=== PATIENT | female | born 1965 | race African-American/Black ===

== ENCOUNTER 2016-06-10 20:24 | Emergency (ER) | payer OTHER ==
[2016-06-10 20:32] VITALS: BP 124/79; PULSE 76; TEMP 98.2; BMI 32.8
--- NOTE | 2016-06-10 20:48 | PDOC ---
History of Present Illness <Chance Duron - Last Filed: 06/11/16 00:37> - General History Source: Patient Exam Limitations: No Limitations - History of Present Illness Initial Comments: 06/10/16 21:18 The patient is a 51 year old female, with significant past medical history of a cholecystectomy and hypothyroidism, who presents today complaining of right sided abdominal pain. The patient states that the abdominal pain is intermittent and occurs when coughing and bending over. She describes the pain as a fist punching through her abdomen. The pain radiates to both her back and groin. 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 The patients last meal was 2 hours ago. Denies fever, chills, nausea, vomiting. Denies diarrhea, constipation. Denies hematuria, urinary problems. Denies chest pain, SOB. The patient went through menopause approximately 6 years ago. Allergies: none reported Surgical Hx: Cholecystectomy <Lisa Bone - Last Filed: 06/11/16 00:43> - General Chief Complaint: Pain Stated Complaint: STOMACH PAIN Time Seen by Provider: 06/10/16 20:48 Past History - Past Medical History Thyroid Disease: Yes - Surgical History Abdominal Surgery: Yes Cholecystectomy: Yes (2001) - Immunization History Td Vaccination: Yes Immunization Up to Date: Yes - Psycho/Social/Smoking Cessation Hx Anxiety: No Suicidal Ideation: No Smoking Status: Yes Smoking History: Current every day smoker Have you smoked in the past 12 months: Yes Number of Cigarettes Smoked Daily: 10 Information on smoking cessation initiated: No 'Breaking Loose' booklet given: 05/22/13 Hx Alcohol Use: No Drug/Substance Use Hx: No Substance Use Type: None <Chance Duron - Last Filed: 06/11/16 00:37> <Lisa Bone - Last Filed: 06/11/16 00:43> - Past Medical History Allergies/Adverse Reactions: Allergies Allergy/AdvReac Type Severity Reaction Status Date / Time No Known Allergies Allergy Verified 06/10/16 20:26 Home Medications: Ambulatory Orders Thyroid,Pork [[place] Thyroid] 75 mg PO DAILY 02/19/12 Review of Systems - Review of Systems Able to Perform ROS?: Yes Comments:: 06/10/16 21:19 CONSTITUTIONAL: No fever, no chills, no fatigue EYES: No visual changes ENT: No ear pain, no sore throat CARDIOVASCULAR: No chest pain, no palpitations RESPIRATORY: No cough, no SOB GI:+abdominal pain. No nausea, no vomiting, no constipation, no diarrhea GENITOURINARY: No dysuria, no frequency, no hematuria MUSKULOSKELETAL: No backpain, no joint pain, no myalgias SKIN: No rash NEURO: No headache <Lisa Bone - Last Filed: 06/11/16 00:43> *Physical Exam - Vital Signs Last Vital Signs Temp Pulse Resp BP Pulse Ox 98.2 F 76 18 124/79 99 06/10/16 20:27 06/10/16 20:27 06/10/16 20:27 06/10/16 20:27 06/10/16 20:27 <Chance Duron - Last Filed: 06/11/16 00:37> - Vital Signs Last Vital Signs Temp Pulse Resp BP Pulse Ox 98.2 F 76 18 124/79 99 06/10/16 20:27 06/10/16 20:27 06/10/16 20:27 06/10/16 20:27 06/10/16 20:27 - Physical Exam Comments: 06/10/16 21:19 CONSTITUTIONAL: Awake, Alert, Obese HEAD: Normocephalic; atraumatic EYES: PERRL; EOM intact. No scleral icterus. Conjunctiva pink. ENMT: External appears normal; normal oropharynx. Moist mucous membranes. NECK: Supple; non-tender; no cervical lymphadenopathy CARD: Normal S1, S2; no murmurs, rubs, or gallops RESP: Normal chest excursion with respiration; breath sounds clear and equal bilaterally; no wheezes, rhonchi, or rales ABD: +Right periumbilical tenderness without guarding or rebound. Soft, non- distended; no palpable organomegaly, no palpable hernias. BACK: No CVA tenderness. EXT: Normal ROM in all four extremities; non-tender to palpation; distal pulses intact SKIN: Warm, dry, no rash NEURO: No focal neurological deficiencies. <Lisa Bone - Last Filed: 06/11/16 00:43> ED Treatment Course - LABORATORY CBC & Chemistry Diagram: 06/10/16 21:27 06/10/16 21:27 <Chance Duron - Last Filed: 06/11/16 00:37> - LABORATORY CBC & Chemistry Diagram: 06/10/16 21:27 06/10/16 21:27 - RADIOLOGY Radiograph Interpretation: 06/11/16 00:43 Exam: Contrast-enhanced CT abdomen and pelvis Images: 430 Clinical indication: Right lower quadrant pain. Rule out appendicitis. Findings: Subsegmental dependent atelectatic changes are noted in the lung bases. An irregularly marginated cystic hypodensities seen on the capsular surface of the right lobe of liver. The patient is status post cholecystectomy. A 14 mm peripherally calcified density seen in the subhepatic space on the right (image 51 may represent a dropped stone. The spleen and pancreas have a normal appearance. The adrenal glands are unremarkable. The kidneys have a normal appearance and enhance symmetrically. There is no evidence of urinary tract obstruction. The gastrointestinal tract does not appear obstructed. No thickened or dilated bowel is seen. A periampullary polypoid filling defect is noted in the duodenum (axial image 60 and coronal reformatted image 45) no thickened or dilated bowel is seen. The appendix has a normal appearance. There is no mesenteric infiltration. The uterus is anteverted. No adnexal masses are seen. The urinary bladder is unremarkable. No abdominal or pelvic adenopathy is seen. No lytic or blastic destructive osseous lesions are seen. Impression: Normal appendix. No inflammatory process identified in the abdomen or pelvis. No abdominal mass, adenopathy or collection seen. Periampullary polypoid lesion. Consider further evaluation. <Lisa Bone - Last Filed: 06/11/16 00:43> Medical Decision Making - Medical Decision Making 06/11/16 00:39 Patient is well-appearing 51-year-old female who presents with atraumatic right- sided abdominal pain without associated nausea/vomiting/diarrhea/dysuria/ hematuria/frequency/urgency. In the ER, patient is awake and alert, resting comfortably, with mild right periumbilical discomfort on deep palpation exacerbated by Valsalva. CBC/CMP within normal limit. Urinalysis reveals 11 WBCs per high-power field (will await urine culture) given the patient experiences no urinary symptoms. CT of abdomen and pelvis reveals several small right lobe cysts as well as a proximal duodenal polyp. No evidence of acute intra-abdominal pathology is noted. Patient tolerates by mouth. At this time, I do not believe patient has any acute intra-abdominal issues and is safe for outpatient follow-up with GI. Will discharge. <Chance Duron - Last Filed: 06/11/16 00:37> *DC/Admit/Observation/Transfer - Attestations Physician Attestion: 06/11/16 00:38 The documentation was prepared by the scribe under my direct supervision. I have reviewed the documentation which correctly represents the findings, medical decision-making and critical action taken by me. <Chance Duron - Last Filed: 06/11/16 00:37> - Attestations Scribe Attestion: 06/10/16 21:20 Documentation prepared by NAYAN Suarez, acting as medical charge entry specialist for Chance Duron MD. <Lisa Bone - Last Filed: 06/11/16 00:43> Diagnosis at time of Disposition: Abdominal pain Qualifiers: Abdominal location: right upper quadrant Qualified Code(s): R10.11 - Right upper quadrant pain - Discharge Dispostion Disposition: HOME Condition at time of disposition: Stable - Referrals Referrals: Paul Al MD [Staff Physician] - - Patient Instructions Printed Discharge Instructions: DI for Abdominal Pain-Adult
[2016-06-10] MEDS ORDERED: SODIUM CHLORIDE 1,000 ML IV STA (21:15)
[2016-06-10 21:40] LABS: BASOPHIL 0.5 % (0-2.0); EOSINOPHIL 1.6 % (0-4.5); MCH 31.7 pg (25.7-33.7); MCHC 34.4 g/dl (32.0-36.0); MEAN CELL VOLUME 92.2 fl (80-96); NEUTROPHILS 59.1 % (42.8-82.8); PLATELET COUNT 264 K/MM3 (134-434); RDW 14.4 % (11.6-15.6); WHITE BLOOD COUNT 8.1 K/mm3 (4.0-10.0)
[2016-06-10 21:43] LABS: URINE APPEARANCE SLCLOUDY; URINE BILIRUBIN NEGATIVE (NEGATIVE); URINE COLOR YELLOW; URINE GLUCOSE (UA) NEGATIVE (NEGATIVE); URINE KETONE TRACE (NEGATIVE); URINE NITRITE NEGATIVE (NEGATIVE); URINE UROBILINOGEN 2.0 E.U/dl E.U./dl (0.2-1.0)
[2016-06-10 21:45] LABS: URINE BLOOD 1+ (NEGATIVE); URINE LEUK ESTERASE TRACE (NEGATIVE); URINE PROTEIN 1+ (NEGATIVE)
[2016-06-10 21:59] LABS: INR 1.04 (0.82-1.09); PROTHROMBIN TIME (PATIENT) 11.4 SEC (9.98-11.88)
[2016-06-10 22:15] LABS: URINE HYALINE CAST 3 /lpf; URINE MUCUS MODERATE; URINE RBC 7 /hpf (0-3); URINE WBC 11 /hpf (3-5)
[2016-06-10 22:24] LABS: ALBUMIN 4.5 g/dl (3.4-5.0); ANION GAP 9 (8-16); BILIRUBIN,TOTAL 0.4 mg/dL (0.2-1.0); CALCIUM 9.4 mg/dL (8.5-10.1); CO2 28 mmol/L (21-32); CREATININE 0.9 mg/dL (0.55-1.02); GLUCOSE,RANDOM 100 mg/dL (74-106); SGOT/AST 24 U/L (15-37); SGPT/ALT 41 U/L (12-78)
[2016-06-10 22:25] LABS: ALK PHOS 99 U/L (45-117)
== END 2016-06-11 00:49 | disposition home or self-care (01) ==
LOC: JER 20:24
PROC: 3E0337Z Introduction of Electrolytic and Water Balance Substance into Peripheral Vein, Percutaneous Approach (ICD-10-PCS; principal; 2016-06-10)
DX: R10.31 Right lower quadrant pain (principal); E03.9 Hypothyroidism, unspecified
CPT/HCPCS: 36415; 74177-TC; 80053; 81003; 81015; 83690; 84703; 85025; 85610; 87086; 99283-25; Q9967

== ENCOUNTER 2016-10-11 10:28 | Emergency (ER) | payer SELFPAY ==
[2016-10-11 10:59] VITALS: BP 122/78; PULSE 80; TEMP 98.4; BMI 29.0
--- NOTE | 2016-10-11 12:57 | PDOC ---
History of Present Illness - General Chief Complaint: Respiratory Stated Complaint: SINUS INFECTION Time Seen by Provider: 10/11/16 12:42 History Source: Patient Exam Limitations: No Limitations - History of Present Illness Initial Comments: 10/11/16 12:52 Patient is here with complaints of cough and sinus congestion and mild pleuritic chest pain. Denies fever, denies any purulent phlegm production, 10/11/16 12:57 Timing/Duration: reports: other, getting worse Severity: reports: mild, moderate Past History - Travel Traveled outside of the country in the last 30 days: No Close contact w/someone who was outside of country & ill: No - Past Medical History Allergies/Adverse Reactions: Allergies Allergy/AdvReac Type Severity Reaction Status Date / Time No Known Allergies Allergy Verified 10/11/16 10:55 Home Medications: Ambulatory Orders Thyroid,Pork [[place] Thyroid] 75 mg PO DAILY 02/19/12 Cetirizine HCl/Pseudoephedrine [Allergy+Congestion Relf-D Tab] 1 each PO DAILY # 30 tab 10/11/16 Prednisone [Deltasone -] 20 mg PO BID #10 tablet 10/11/16 Thyroid Disease: Yes - Surgical History Abdominal Surgery: Yes Cholecystectomy: Yes (2001) - Immunization History Td Vaccination: Yes Immunization Up to Date: Yes - Psycho/Social/Smoking Cessation Hx Anxiety: No Suicidal Ideation: No Smoking Status: Yes Smoking History: Never smoked Have you smoked in the past 12 months: Yes Number of Cigarettes Smoked Daily: 10 Information on smoking cessation initiated: No 'Breaking Loose' booklet given: 05/22/13 Hx Alcohol Use: No Drug/Substance Use Hx: No Substance Use Type: None Respiratory Specific PMHX - Complaint Specific PMHX Bronchitis: No Pneumonia: No Review of Systems - Review of Systems Able to Perform ROS?: Yes Is the patient limited Citizen [place] proficient: Yes Constitutional: Yes: Symptoms Reported, See HPI, Malaise. No: Fever HEENTM: Yes: Symptoms Reported, See HPI, Nose Pain, Nose Congestion Respiratory: Yes: Symptoms reported, See HPI, Cough (moist non productivev ). No: Wheezing Cardiac (ROS): No: Symptoms Reported Musculoskeletal: Yes: Symptoms Reported All Other Systems: Reviewed and Negative *Physical Exam - Vital Signs Last Vital Signs Temp Pulse Resp BP Pulse Ox 98.4 F 80 18 122/78 98 10/11/16 10:55 10/11/16 10:55 10/11/16 10:55 10/11/16 10:55 10/11/16 10:55 - Physical Exam General Appearance: Yes: Nourished, Appropriately Dressed, Apparent Distress, Mild Distress HEENT: positive: HILARIA, Normal ENT Inspection, TMs Normal (congested but landmarks easily visualized), Nasal Congestion, Rhinorrhea (clear drainage). negative: Tonsillar Exudate, Tonsillar Erythema (redness, swelling or exudate noted) Neck: positive: Supple. negative: Lymphadenopathy (R), Lymphadenopathy (L) Respiratory/Chest: positive: Lungs Clear, Normal Breath Sounds. negative: Crackles, Wheezing Extremity: positive: Normal Capillary Refill, Normal Inspection, Normal Range of Motion, Tender, Pelvis Stable Integumentary: positive: Normal Color, Dry, Warm Neurologic: positive: ham passer II-XII NML intact, Fully Oriented, Alert, Normal Mood/ Affect, Normal Response, Motor Strength 5/5 Progress Note - Progress Note Progress Note: ALLERGIC rhinitis, will treat with Zyrtec D, short course of prednisone, and have follow-up with PMD *DC/Admit/Observation/Transfer Diagnosis at time of Disposition: Allergic rhinitis Qualifiers: Allergic rhinitis trigger: other Allergic rhinitis seasonality: unspecified seasonality Qualified Code(s): J30.89 - Other allergic rhinitis - Discharge Dispostion Disposition: HOME Condition at time of disposition: Stable Admit: No - Prescriptions Prescriptions: Cetirizine HCl/Pseudoephedrine [Allergy+Congestion Relf-D Tab] 1 each PO DAILY # 30 tab Prednisone [Deltasone -] 20 mg PO BID #10 tablet - Patient Instructions Printed Discharge Instructions: DI for Allergic Rhinitis Additional Instructions: Rest, drink lots of fluids: Teas, water, soups Saltwater gargles. Consider humidifier in room at night Steamy showers/seem to face break up mucus Avoid contact with allergens, exposure to pollens, close windows on a windy day Lots of handwashing and good hygiene Continue [id number] medications for symptomatic relief- may use allergic eyedrops for itching I Continue antihistamines daily until pollen season is over; Zyrtec, Claritin, Dian during the daytime and Benadryl at nighttime as will make sleepy Tylenol or Motrin for fever and pain Continue prednisone 40 mg daily for the next 5 days Followup with private physician in one to 2 days as needed Consider following up with an 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
== END 2016-10-11 13:15 | disposition home or self-care (01) ==
LOC: JERFT 10:28
DX: J30.89 Other allergic rhinitis (principal)
CPT/HCPCS: 99281-25

== ENCOUNTER 2017-04-13 08:45 | Emergency (ER) | payer OTHER ==
[2017-04-13 08:50] VITALS: BP 124/78; PULSE 86; TEMP 99.2; BMI 30.9
--- NOTE | 2017-04-13 09:24 | PDOC ---
History of Present Illness - General Chief Complaint: Cold Symptoms Stated Complaint: COLD SYMPTOMS Time Seen by Provider: 04/13/17 09:09 History Source: Patient Exam Limitations: No Limitations - History of Present Illness Initial Comments: 04/13/17 13:18 My chief complaint: Nasal congestion, sore throat, last few days, dry cough, rt. earache today History of present illness: Patient is a 52-year-old female with no significant medical history here today complaining of nasal congestion, sore throat for the last few days and a dry cough that started today. Patient denies any difficulty swallowing or breathing. Patient denies any fever, nausea vomiting or diarrhea. Pt. has rt. ear pain today and rt. sided headache. 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 Patient has had no recent travel. Patient did not have influenza vaccine. Pt. has yellowish discharge b/l eye for 2 days 04/13/17 13:21 04/13/17 13:24 Timing/Duration: getting worse Severity: mild Associated Symptoms: reports: cough, headaches (intermittent n), other (sore throat, discharge from b/l eyes) Past History - Past Medical History Allergies/Adverse Reactions: Allergies Allergy/AdvReac Type Severity Reaction Status Date / Time No Known Allergies Allergy Verified 04/13/17 08:50 Home Medications: Ambulatory Orders Thyroid,Pork [[place] Thyroid] 75 mg PO DAILY 02/19/12 Amoxicillin - [Amoxicillin 875mg Tablet -] 875 mg PO BID #20 tablet 04/13/17 Dextromethorphan Polistirex [Delsym] 60 mg PO Q12H PRN #1 nelson.er.[id number] 04/13/17 Tobramycin 0.3% Ophth Soln [Tobrex Ophthalmic Solution -] 2 drop OU Q6HPO #1 drops 04/13/17 COPD: No Thyroid Disease: Yes - Surgical History Abdominal Surgery: Yes Cholecystectomy: Yes (2001) - Immunization History Td Vaccination: Yes Immunization Up to Date: Yes - Suicide/Smoking/Psychosocial Hx Smoking Status: Yes Smoking History: Never smoked Have you smoked in the past 12 months: Yes Number of Cigarettes Smoked Daily: 10 'Breaking Loose' booklet given: 05/22/13 Hx Alcohol Use: No Drug/Substance Use Hx: No Substance Use Type: None Review of Systems - Review of Systems Able to Perform ROS?: Yes Constitutional: No: Symptoms Reported HEENTM: Yes: Ear Pain (rt. ), Nose Congestion, Throat Pain, Other (b/l eyes yellowish discharge ). No: Eye Pain, Blurred Vision, Tearing Respiratory: No: Symptoms reported Cardiac (ROS): No: Symptoms Reported ABD/GI: No: Symptoms Reported : No: Symptoms Reported Musculoskeletal: No: Symptoms Reported Integumentary: No: Symptoms Reported Neurological: No: Symptoms reported *Physical Exam - Vital Signs Last Vital Signs Temp Pulse Resp BP Pulse Ox 99.2 F 86 20 124/78 98 04/13/17 08:46 04/13/17 08:46 04/13/17 08:46 04/13/17 08:46 04/13/17 08:46 - Physical Exam General Appearance: Yes: Appropriately Dressed HEENT: positive: TMs Normal (left ), Pharyngeal Erythema, TM Bulging (slightly ) , TM Erythema (rt slightly), Other (b/l conjunctiva erythema ). negative: Tonsillar Erythema Neck: positive: Lymphadenopathy (R). negative: Lymphadenopathy (L) Respiratory/Chest: positive: Lungs Clear, Normal Breath Sounds. negative: Chest Tender, Respiratory Distress Cardiovascular: positive: Regular Rhythm, Regular Rate, S1, S2 Integumentary: positive: Normal Color Neurologic: positive: Alert, Normal Response Medical Decision Making - Medical Decision Making 04/13/17 13:21 Patient is a 52-year-old female with no significant medical history here today complaining of nasal congestion, sore throat for the last few days and a dry cough that started today. Patient denies any difficulty swallowing or breathing. Patient denies any fever, nausea vomiting or diarrhea. 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 Patient has had no recent travel. Patient did not have influenza vaccine. Pt. has had yellowish discharge b/l eyes for 2 days 04/13/17 13:22 Rt. otitis media pharngitis cough conjunctivitis PLAN: amoxicillin 875mg bid for 10 days tobramycin 0.3% 2 drops qid for 5 days 04/13/17 13:23 *DC/Admit/Observation/Transfer Diagnosis at time of Disposition: Cough in adult Otitis media Qualifiers: Otitis media type: unspecified Chronicity: acute Qualified Code(s): H66.90 - Otitis media, unspecified, unspecified ear Conjunctivitis Qualifiers: Conjunctivitis type: unspecified Laterality: unspecified laterality Qualified Code(s): H10.9 - Unspecified conjunctivitis - Discharge Dispostion Disposition: HOME Condition at time of disposition: Stable - Prescriptions Prescriptions: Amoxicillin - [Amoxicillin 875mg Tablet -] 875 mg PO BID #20 tablet Dextromethorphan Polistirex [Delsym] 60 mg PO Q12H PRN #1 nelson.er.12h PRN Reason: Cough Tobramycin 0.3% Ophth Soln [Tobrex Ophthalmic Solution -] 2 drop OU Q6HPO #1 drops - Referrals - Patient Instructions Additional Instructions: Drink a lot a fluids and rest Follow up with your primary care provider within the next few days Return to emergency room if symptoms worsen any difficulty breathing or swallowing or any new symptoms develop Patient voiced understanding of discharge instructions and all questions were answered Thank you for choosing [facility] emergency room for your medical needs today - Post Discharge Activity
== END 2017-04-13 09:42 | disposition home or self-care (01) ==
LOC: JERFT 08:45
DX: H66.91 Otitis media, unspecified, right ear (principal); H10.33 Unspecified acute conjunctivitis, bilateral
CPT/HCPCS: 99281-25

== ENCOUNTER 2017-04-25 10:45 | Emergency (ER) | payer OTHER ==
[2017-04-25 11:01] VITALS: BP 131/79; PULSE 68; TEMP 98.7; BMI 30.9
--- NOTE | 2017-04-25 12:36 | PDOC ---
History of Present Illness - General Chief Complaint: Tremors Stated Complaint: RT/LT HAND NUMBNESS Time Seen by Provider: 04/25/17 12:07 History Source: Patient Exam Limitations: No Limitations - History of Present Illness Initial Comments: 04/25/17 12:31 Patient is a [52-year-old female with history of hypothyroidism presents with intermittent numbness for several months to bilateral fingertips none upon arrival states she woke up with it this a.m. which has since resolved. Patient denies any chest pain or shortness of breath. ] Past Medical History: [Denies]. Allergies: No known allergies Medications: [Synthroid] Family History: Non-contributory Social History: Denies smoking, alcohol use, or IVDU Review of Systems GENERAL/CONSTITUTIONAL: [No fever or chills. No weakness. No weight change.] HEAD, EYES, EARS, NOSE AND THROAT: [No change in vision. No ear pain or discharge. No sore throat. ] CARDIOVASCULAR: [No chest pain or shortness of breath.] RESPIRATORY: [No cough, wheezing, or hemoptysis.] GASTROINTESTINAL: [No nausea, vomiting, diarrhea or constipation. No rectal bleeding.] GENITOURINARY: [No dysuria, frequency, or change in urination.] MUSCULOSKELETAL: [No joint or muscle swelling or pain. No neck or back pain. Tingling to bilaterl finger tips after waking up in the AM.] SKIN : [No rash or easy bruising.] NEUROLOGIC: [No headache, vertigo, loss of consciousness, or loss of sensation. Tingling to bilateral finger tips in the AM. ] PSYCHIATRIC: [No depression or anxiety.] ENDOCRINE: [No increased thirst. No abnormal weight change.] HEMATOLOGIC/LYMPHATIC: [No anemia, easy bleeding, or history of blood clots.] ALLERGIC/IMMUNOLOGIC: [No hives or skin allergy. No latex allergy.] Physical Exam: GENERAL: [The patient is awake, alert, and fully oriented, in no acute distress. ] HEAD: [Normal with no signs of trauma.] EYES: [Pupils equal, round and reactive to light, extraocular movements intact, sclera anicteric, conjunctiva clear.] ENT: [Ears normal, nares patent, oropharynx clear without exudates. Moist mucous membranes. No uvula deviation] NECK: [Normal range of motion, supple without lymphadenopathy, JVD, or masses.] LUNGS: [Breath sounds equal, clear to auscultation bilaterally. No wheezes, and no crackles.] HEART: [Regular rate and rhythm, normal S1 and S2 without murmur, rub or gallop. ] ABDOMEN: [Soft, nontender, normoactive bowel sounds. No guarding, no rebound. No masses. No bruising or abrasions] MUSCULOSKELETAL: [Normal range of motion, no edema. No clubbing or cyanosis. No cords, erythema, or tenderness. No CVA Tenderness with fist.] NEUROLOGICAL: [Cranial nerves II through XII grossly intact. Normal speech, normal gait.] SKIN: [Warm, Dry, normal turgor, no rashes or lesions noted.] Past History - Past Medical History Allergies/Adverse Reactions: Allergies Allergy/AdvReac Type Severity Reaction Status Date / Time No Known Allergies Allergy Verified 04/25/17 10:59 Home Medications: Ambulatory Orders Thyroid,Pork [[place] Thyroid] 75 mg PO DAILY 02/19/12 COPD: No Thyroid Disease: Yes - Surgical History Abdominal Surgery: Yes Cholecystectomy: Yes (2001) - Immunization History Td Vaccination: Yes Immunization Up to Date: Yes - Suicide/Smoking/Psychosocial Hx Smoking Status: Yes Smoking History: Current every day smoker Have you smoked in the past 12 months: Yes Number of Cigarettes Smoked Daily: 7 Information on smoking cessation initiated: No 'Breaking Loose' booklet given: 05/22/13 Hx Alcohol Use: No Drug/Substance Use Hx: No Substance Use Type: None *Physical Exam - Vital Signs Last Vital Signs Temp Pulse Resp BP Pulse Ox 98.7 F 68 19 131/79 99 04/25/17 10:59 04/25/17 10:59 04/25/17 10:59 04/25/17 10:59 04/25/17 10:59 Medical Decision Making - Medical Decision Making 04/25/17 12:34 A/P: Patient here for intermittent tingling to bilateral fingertips for several months hands alternate with symptoms, wakes up with tingling in the a.m. Patient denies any injury no difficulty breathing no chest pain or shortness of breath. Patient denies any symptoms upon arrival physical examination is unremarkable neurologically intact. Patient will need to follow-up with neurology since symptoms are chronic with no acute symptoms upon arrival. I discussed the physical exam findings, ancillary test results and final diagnoses with the patient. I answered all of the patient's questions. The patient was satisfied with the care received and felt comfortable with the discharge plan and treatment plan. The patient will call to arrange follow-up and will return to the Emergency Department with any new, persistent or worsening symptoms. *DC/Admit/Observation/Transfer Diagnosis at time of Disposition: Tingling in extremities - Discharge Dispostion Disposition: HOME Condition at time of disposition: Good Admit: No - Referrals Referrals: Surya Collado MD [Staff Physician] - Ebenezer Cat MD [Staff Physician] - - Patient Instructions Additional Instructions: Recommend new pillow when sleeping. Follow up with neurology. - Post Discharge Activity Forms/Work/School Notes: Back to Work
== END 2017-04-25 12:40 | disposition home or self-care (01) ==
LOC: JERFT 10:45
DX: R20.2 Paresthesia of skin (principal); E03.9 Hypothyroidism, unspecified
CPT/HCPCS: 99281-25

== ENCOUNTER 2017-05-29 10:41 | Emergency (ER) | payer OTHER ==
[2017-05-29 10:50] VITALS: BP 129/75; PULSE 72; TEMP 98.3; BMI 31.1
[2017-05-29] MEDS ORDERED: IBUPROFEN 600 MG TABLET (FP) PO ONE ×2 (11:40→11:44)
--- NOTE | 2017-05-29 11:46 | PDOC ---
History of Present Illness - General Chief Complaint: Respiratory Stated Complaint: BODYACHES Time Seen by Provider: 05/29/17 11:03 History Source: Patient Exam Limitations: No Limitations - History of Present Illness Initial Comments: 05/29/17 11:41 Patient thought to get evaluated as her daughter is here for ER visit. Complaining of bilateral thigh and muscle aches on and off for the past 3 days. Denies fever, denies any swelling numbness or tingling. Denies any changes in exercise or activity although has been more sedentary over the past few weeks due to the weather took Tylenol yesterday with some resolved. No rashes lesions , no other physical symptoms. Timing/Duration: reports: intermittent Severity: reports: mild, moderate Associated Symptoms: reports: denies symptoms. denies: chest pain/soreness, cough, fever/chills, headache, nasal congestion Past History - Travel Traveled outside of the country in the last 30 days: No Close contact w/someone who was outside of country & ill: No - Past Medical History Allergies/Adverse Reactions: Allergies Allergy/AdvReac Type Severity Reaction Status Date / Time No Known Allergies Allergy Verified 05/29/17 10:50 Home Medications: Ambulatory Orders Thyroid,Pork [[place] Thyroid] 75 mg PO DAILY 02/19/12 Ibuprofen 400 mg PO Q6H PRN #30 tablet 05/29/17 COPD: No Thyroid Disease: Yes - Surgical History Abdominal Surgery: Yes Cholecystectomy: Yes (2001) - Immunization History Td Vaccination: Yes Immunization Up to Date: Yes - Suicide/Smoking/Psychosocial Hx Smoking Status: Yes Smoking History: Never smoked Have you smoked in the past 12 months: Yes Number of Cigarettes Smoked Daily: 7 Information on smoking cessation initiated: No 'Breaking Loose' booklet given: 05/22/13 Hx Alcohol Use: No Drug/Substance Use Hx: No Substance Use Type: None Respiratory Specific PMHX - Complaint Specific PMHX Bronchitis: No Pneumonia: No Review of Systems - Review of Systems Able to Perform ROS?: Yes Is the patient limited Greenlandic proficient: Yes Constitutional: Yes: See HPI. No: Symptoms Reported, Chills, Fever, Malaise HEENTM: Yes: See HPI. No: Symptoms Reported, Nose Congestion Respiratory: Yes: See HPI. No: Symptoms reported, Cough, Wheezing Musculoskeletal: Yes: Symptoms Reported, See HPI, Muscle Pain. No: Back Pain, Joint Pain, Muscle Weakness Integumentary: No: Symptoms Reported All Other Systems: Reviewed and Negative *Physical Exam - Vital Signs Last Vital Signs Temp Pulse Resp BP Pulse Ox 98.3 F 72 18 129/75 99 05/29/17 10:43 05/29/17 10:43 05/29/17 10:43 05/29/17 10:43 05/29/17 10:43 - Physical Exam General Appearance: Yes: Nourished, Appropriately Dressed. No: Apparent Distress HEENT: positive: HILARIA, Normal ENT Inspection (bilateral), TMs Normal, Pharynx Normal Neck: positive: Supple. negative: Lymphadenopathy (R), Lymphadenopathy (L) Respiratory/Chest: positive: Lungs Clear, Normal Breath Sounds Gastrointestinal/Abdominal: positive: Normal Bowel Sounds, Soft. negative: Tender Musculoskeletal: positive: Normal Inspection, Other (no swelling deformity or reproduced tnederness ). 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, Fully Oriented, Alert, Normal Mood/ Affect, Normal Response, Motor Strength 5/5 Progress Note - Progress Note Progress Note: Musculoskeletal aches, no evidence of significant pathology Will use NSAIDs for trial for relief *DC/Admit/Observation/Transfer Diagnosis at time of Disposition: Musculoskeletal pain of extremity - Discharge Dispostion Disposition: HOME Condition at time of disposition: Stable Admit: No - Prescriptions Prescriptions: Ibuprofen 400 mg PO Q6H PRN #30 tablet PRN Reason: Pain - Referrals Referrals: Donal Wright MD [Staff Physician] - - Patient Instructions Printed Discharge Instructions: DI for Muscle Strain Additional Instructions: Rest, ice to area on and off for 15 minutes 4-6 times a day Avoid heavy lifting or exercise until pain and swelling is resolved or until further directed Keep area highly elevated to reduce swelling Use splints/Reinier wrap as directed Followup with orthopedist in one to 2 days if not improving, if significantly improved may wait one week for followup with orthopedist May use ibuprofen 2-200 mg tablets every 6 hours as needed for pain - Post Discharge Activity Forms/Work/School Notes: Back to Work
== END 2017-05-29 11:58 | disposition home or self-care (01) ==
LOC: JERFT 10:41
DX: M79.651 Pain in right thigh (principal); M79.652 Pain in left thigh
CPT/HCPCS: 99281-25

== ENCOUNTER 2018-05-08 18:17 | Emergency (ER) | payer SELFPAY ==
--- NOTE | 2018-05-08 18:38 | PDOC ---
Rapid Medical Evaluation Chief Complaint: Pain Time Seen by Provider: 05/08/18 18:32 Medical Evaluation: Allergies Allergy/AdvReac Type Severity Reaction Status Date / Time No Known Allergies Allergy Verified 05/29/17 10:50 05/08/18 18:33 I have performed a brief in-person evaluation of this patient. The patient presents with a chief complaint of:right flank with radiating pain - Had cholecystect ~ 20yrs ago. , pain woke from sleep and radiated to left shoulder and upper arm. Pertinent physical exam findings: Soft , NT I have ordered the following: EKG, CBC, Card profile, CMP, UA The patient will proceed to the ED for further evaluation. 05/08/18 18:38 05/08/18 20:17 Discharge Disposition - Discharge Dispostion Condition at time of disposition: Stable - Referrals - Patient Instructions - Post Discharge Activity
[2018-05-08 18:43] VITALS: BMI 32.5
[2018-05-08 19:20] LABS: BASO % 0.6 % (0-2.0); EOS % 1.8 % (0-4.5); HEMATOCRIT 37.9 % (32.4-45.2); HEMOGLOBIN 13.3 GM/dL (10.7-15.3); LYMPH % 32.5 % (8-40); MCH 32.6 pg (25.7-33.7); MCHC 35.1 g/dl (32.0-36.0); MEAN CELL VOLUME 92.7 fl (80-96); MEAN PLT VOLUME 7.8 fl (7.5-11.1); MONO % 6.7 % (3.8-10.2); NEUT % 58.4 % (42.8-82.8); PLATELET COUNT 290 K/MM3 (134-434); RBC 4.09 M/mm3 (3.60-5.2); RDW 14.3 % (11.6-15.6); WHITE BLOOD COUNT 8.7 K/mm3 (4.0-10.0)
[2018-05-08 20:03] LABS: BILIRUBIN,TOTAL 0.3 mg/dL (0.2-1); CO2 27 mmol/L (21-32)
[2018-05-08 20:04] LABS: ALBUMIN 4.1 g/dl (3.4-5.0); ALK PHOS 91 U/L (45-117); ANION GAP 6 MMOL/L (8-16); BLOOD UREA NITROGEN 11 mg/dL (7-18); CHLORIDE 107 mmol/L (98-107); CREATININE 0.9 mg/dL (0.55-1.3); GLUCOSE,RANDOM 94 mg/dL (74-106); SGOT/AST 26 U/L (15-37); SGPT/ALT 36 U/L (13-61); SODIUM 140 mmol/L (136-145); TOT PROT 7.7 g/dl (6.4-8.2)
[2018-05-08 20:12] LABS: URINE APPEARANCE CLEAR; URINE BILIRUBIN NEGATIVE (<2.0 mg/dL); URINE COLOR YELLOW; URINE GLUCOSE (UA) NEGATIVE (NEGATIVE); URINE KETONE NEGATIVE (NEGATIVE); URINE LEUK ESTERASE TRACE (NEGATIVE); URINE NITRITE NEGATIVE (NEGATIVE); URINE PROTEIN NEGATIVE (NEGATIVE); URINE UROBILINOGEN NEGATIVE mg/dL (0.2-1.0)
[2018-05-08 20:22] LABS: EPI CELLS MODERATE /HPF (FEW); URINE BACTERIA MODERATE /hpf (NONE SEEN); URINE MUCUS RARE
--- NOTE | 2018-05-08 21:12 | PDOC ---
History of Present Illness - General Chief Complaint: Pain, Acute Stated Complaint: BODY PAIN Time Seen by Provider: 05/08/18 18:32 - History of Present Illness Initial Comments: 05/08/18 21:14 53f WITH pmh of cholecystectomy and hypothyroidism, presents with 2 days of colicky right flank pain, cramping right ventral thigh pain, and left forearm pain. Nothing exacerbates the pain, no dysuria, no hematuria. Denies chest pain, nausea, vomiting, diarrhea or fever. Past History - Past Medical History Allergies/Adverse Reactions: Allergies Allergy/AdvReac Type Severity Reaction Status Date / Time No Known Allergies Allergy Verified 05/29/17 10:50 Home Medications: Ambulatory Orders Thyroid,Pork [[place] Thyroid] 75 mg PO DAILY 02/19/12 Ibuprofen 400 mg PO Q6H PRN #30 tablet 05/29/17 COPD: No Dialysis: No HTN: No Thyroid Disease: Yes - Surgical History Abdominal Surgery: Yes Cholecystectomy: Yes (2001) - Immunization History Td Vaccination: Yes Immunization Up to Date: Yes - Suicide/Smoking/Psychosocial Hx Smoking Status: Yes Smoking History: Never smoked Have you smoked in the past 12 months: No Number of Cigarettes Smoked Daily: 7 Information on smoking cessation initiated: No 'Breaking Loose' booklet given: 05/22/13 Hx Alcohol Use: No Drug/Substance Use Hx: No Substance Use Type: None Review of Systems - Review of Systems Able to Perform ROS?: Yes Is the patient limited Icelandic proficient: No Constitutional: No: Symptoms Reported HEENTM: No: Symptoms Reported Respiratory: No: Symptoms reported Cardiac (ROS): No: Symptoms Reported ABD/GI: No: Symptoms Reported : No: Symptoms Reported Musculoskeletal: Yes: See HPI Integumentary: No: Symptoms Reported Neurological: No: Symptoms reported All Other Systems: Reviewed and Negative *Physical Exam - Vital Signs Last Vital Signs Temp Pulse Resp BP Pulse Ox 98.1 F 64 16 149/78 98 05/08/18 18:35 05/08/18 18:35 05/08/18 18:35 05/08/18 18:35 05/08/18 18:35 - Physical Exam General Appearance: Yes: Nourished, Appropriately Dressed. No: Apparent Distress HEENT: positive: EOMI, HILARIA, Normal ENT Inspection Respiratory/Chest: positive: Lungs Clear, Normal Breath Sounds. negative: Chest Tender, Respiratory Distress Cardiovascular: positive: Regular Rhythm, Regular Rate, S1, S2 Gastrointestinal/Abdominal: positive: Normal Bowel Sounds, Flat, Soft. negative : Tender Musculoskeletal: positive: Normal Inspection. negative: CVA Tenderness Extremity: positive: Normal Capillary Refill, Normal Inspection, Normal Range of Motion Integumentary: positive: Normal Color, Dry, Warm Neurologic: positive: Fully Oriented, Alert, Normal Mood/Affect Moderate Sedation - Procedure Monitoring Vital Signs: Procedure Monitoring Vital Signs Temperature 98.1 F 05/08/18 18:35 Pulse Rate 64 05/08/18 18:35 Respiratory Rate 16 05/08/18 18:35 Blood Pressure 149/78 05/08/18 18:35 O2 Sat by Pulse Oximetry (%) 98 05/08/18 18:35 ED Treatment Course - LABORATORY CBC & Chemistry Diagram: 05/08/18 19:11 05/08/18 19:11 - ADDITIONAL ORDERS Additional order review: Laboratory Results 05/08/18 05/08/18 05/08/18 19:24 19:11 19:11 Sodium 140 Potassium 4.0 Chloride 107 Carbon Dioxide 27 Anion Gap 6 L BUN 11 Creatinine 0.9 Creat Clearance w eGFR > 60 Random Glucose 94 Calcium 9.0 Total Bilirubin 0.3 AST 26 ALT 36 Alkaline Phosphatase 91 Creatine Kinase 187 Creatine Kinase Index 0.6 CK-MB (CK-2) 1.2 Troponin I < 0.02 Total Protein 7.7 Albumin 4.1 Urine Color Yellow Urine Appearance Clear Urine pH 5.0 Ur Specific Velpen 1.016 Urine Protein Negative Urine Glucose (UA) Negative Urine Ketones Negative Urine Blood 1+ H Urine Nitrite Negative Urine Bilirubin Negative Urine Urobilinogen Negative Ur Leukocyte Esterase Trace Urine WBC (Auto) 9 Urine RBC (Auto) 1 Ur Epithelial Cells Moderate Urine Bacteria Moderate Urine Mucus Rare 05/08/18 19:11 RBC 4.09 MCV 92.7 MCHC 35.1 RDW 14.3 MPV 7.8 Neutrophils % 58.4 Lymphocytes % 32.5 Monocytes % 6.7 Eosinophils % 1.8 Basophils % 0.6 - RADIOLOGY Radiology Studies Ordered: Category Date Time Status SPIRAL- RENAL-STONE CT [CT] Stat CT Scan 05/08/18 20:57 Ordered Medical Decision Making - Medical Decision Making 05/08/18 21:39 Nephrolithiasis vs musculoskeletal pain Kidney stones likely due to colicky pain and +1 blood in urine. Will perform spiral CT CT read: No significant interval change. There is no evidence of hydroureteronephrosis, renal or ureteral stone, bilaterally. Status post cholecystectomy with a small cystic density/seroma in the gallbladder fossa again noted without interval change. No intra or extrahepatic bile duct dilatation is seen. Previously described bulbous appearance in the region of the ampulla is not appreciated on this exam. An MRCP would be the study of choice in view of the prior CT scan of the abdomen report/bulbous appearance at the site of the ampulla. Will try motrin and reassess/discharge *DC/Admit/Observation/Transfer Diagnosis at time of Disposition: Musculoskeletal pain of extremity - Discharge Dispostion Disposition: HOME Condition at time of disposition: Stable Decision to Admit order: No - Referrals - Patient Instructions Printed Discharge Instructions: DI for Back Pain With Sciatica Additional Instructions: Come back to the emergency department for any new, worsening or concerning symptoms, Follow up with your primary care provider within the next 3 days. - Post Discharge Activity
[2018-05-08] MEDS ORDERED: IBUPROFEN 600 MG TABLET (FP) PO ONE ×2 (22:32→22:53)
--- NOTE | 2018-05-08 22:51 | PDOC ---
Attending Attestation - HPI HPI: 05/08/18 23:07 The patient is a 53 year old female, with a significant past medical history of hypothyroidism, who presents to the emergency department with right lower flank/ back pain for the past couple of days. The patient states that the right lower flank/back pain radiates down the right buttock to just above the right knee. She states that she is worried she might have a kidney stone but she denies any dysuria, hematuria, urinary frequency/urgency or any bowel/urinary incontinence. The patient denies fever, chills, nausea, vomiting or diarrhea. The patient denies any bowel or urinary incontinence. Allergies: None reported. Past Surgical History: Cholecystectomy. Social History: Non-smoker. Denies alcohol or drug use. Documentation prepared by Mamta Knutson, acting as biomedical engineering technician for Norma Segundo MD. - Physicial Exam PE: 05/08/18 22:56 GENERAL: Awake, alert, and fully oriented, in no acute distress. HEAD: No signs of trauma. EYES: PERRLA, EOMI, sclera anicteric, conjunctiva clear. ENT: Auricles normal inspection, hearing grossly normal, nares patent, oropharynx clear without exudates. Moist mucosa. NECK: Normal ROM, supple, no lymphadenopathy, JVD, or masses. LUNGS: Breath sounds equal, clear to auscultation bilaterally. No wheezes, and no crackles. HEART: Regular rate and rhythm, normal S1 and S2, no murmurs, rubs or gallops. ABDOMEN: Protuberant abdomen. Soft, nontender, normoactive bowel sounds. No guarding, no rebound. No masses. EXTREMITIES: Normal range of motion, no edema. Strength is 5/5 in both the upper and lower extremities. No motor deficits. Sensation intact bilaterally. No clubbing or cyanosis. No cords, erythema, or tenderness. NEUROLOGICAL: Cranial nerves II through XII intact. Normal speech, normal gait. SKIN: Warm, dry, normal turgor, no rashes or lesions noted. Documentation prepared by Mamta Knutson, acting as biomedical engineering technician for Norma Segundo MD. <Mamta Maciel - Last Filed: 05/08/18 23:07> - Resident Resident Name: Rick Ly - ED Attending Attestation I have performed the following: I have examined & evaluated the patient, The case was reviewed & discussed with the resident, I agree w/resident's findings & plan, Exceptions are as noted - HPI HPI: 05/08/18 23:02 53 yo female presents becasue she has has several days of back pain and - Medical Decision Making 05/08/18 23:14 ct scan of abd/pel: no calculcus, no hydro, no appendicitis,no sbo,no colitis, no fecal impaction labs unremarkable pt describes pain that radiated from her back to down the front of her rt leg imp sciatica pt given nsaids and symptoms improved <Norma Segundo - Last Filed: 05/08/18 23:17>
[2018-05-08 23:22] VITALS: BP 124/77; PULSE 79; TEMP 98.2
--- NOTE | 2018-05-09 16:27 | EKG ---
Test Reason : Blood Pressure : / mmHG Vent. Rate : 058 BPM Atrial Rate : 058 BPM P-R Int : 172 ms QRS Dur : 068 ms QT Int : 422 ms P-R-T Axes : 048 035 048 degrees QTc Int : 414 ms SINUS BRADYCARDIA OTHERWISE NORMAL ECG Confirmed by MD OSCAR, MARTA ([id number]) on 05/09/2018 4:27:19 PM Referred By: Confirmed By:MARTA MOORE MD
== END 2018-05-08 23:20 | disposition home or self-care (01) ==
LOC: JER 18:17
CPT/HCPCS: 36415; 74176; 80053; 81003; 81015; 82550; 82553; 84484; 85025; 93005; 93010; 99282-25

== ENCOUNTER 2018-08-05 22:03 | Emergency (ER) | payer SELFPAY ==
[2018-08-05 22:09] VITALS: BP 135/72; PULSE 74; TEMP 97.9; BMI 32.0
--- NOTE | 2018-08-05 22:50 | PDOC ---
History of Present Illness - General Chief Complaint: Sore Throat Stated Complaint: EAR THROAT PAIN Time Seen by Provider: 08/05/18 22:34 History Source: Patient Exam Limitations: Clinical Condition - History of Present Illness Initial Comments: 08/05/18 22:51 Patient with no significant past medical history present with complaint of 4 day history of sore throat, nasal congestion and pain with swallowing. Denies fever, chills, cough. Denies any other symptoms Timing/Duration: other (4 days) Past History - Past Medical History Allergies/Adverse Reactions: Allergies Allergy/AdvReac Type Severity Reaction Status Date / Time No Known Allergies Allergy Verified 05/29/17 10:50 Home Medications: Ambulatory Orders Thyroid,Pork [[place] Thyroid] 75 mg PO DAILY 02/19/12 Ibuprofen 400 mg PO Q6H PRN #30 tablet 05/29/17 Amox-Tr/K Cl [Augmentin - 875Mg Tablet] 1 tab PO BID #14 tablet 08/05/18 Fluconazole [Diflucan] 150 mg PO ONCE #1 tablet 08/05/18 Ipratropium Sharon 2 spray NS BID PRN #1 spray 08/05/18 COPD: No Dialysis: No HTN: No Thyroid Disease: Yes - Surgical History Abdominal Surgery: Yes Cholecystectomy: Yes (2001) - Immunization History Td Vaccination: Yes Immunization Up to Date: Yes - Suicide/Smoking/Psychosocial Hx Smoking Status: Yes Smoking History: Unknown if ever smoked Have you smoked in the past 12 months: Yes Number of Cigarettes Smoked Daily: 7 'Breaking Loose' booklet given: 05/22/13 Hx Alcohol Use: No Drug/Substance Use Hx: No Substance Use Type: None Review of Systems - Review of Systems Able to Perform ROS?: Yes Is the patient limited Frisian proficient: No Constitutional: No: Chills, Fever, Malaise HEENTM: Yes: Symptoms Reported, See HPI, Nose Congestion, Throat Pain. No: Eye Pain, Blurred Vision, Tearing, Recent change in vision, Double Vision, Cataracts , Ear Pain, Ocular Prothesis, Ear Discharge, Nose Pain, Tinnitus, Nose Bleeding , Hearing Loss, Throat Swelling, Mouth Pain, Dental Problems, Difficulty Swallowing, Mouth Swelling, Other Respiratory: No: Symptoms reported, See HPI, Cough, Orthopnea, Shortness of Breath, SOB with Exertion, SOB at Rest, Stridor, Wheezing, Productive cough, Hemoptysis, Other Cardiac (ROS): No: Symptoms Reported, See HPI, Chest Pain, Edema, Irregular Heart Rate, Lightheadedness, Palpitations, Syncope, Chest Tightness, Other ABD/GI: No: Nausea, Vomiting All Other Systems: Reviewed and Negative *Physical Exam - Vital Signs Last Vital Signs Temp Pulse Resp BP Pulse Ox 97.9 F 74 20 135/72 99 08/05/18 22:05 08/05/18 22:05 08/05/18 22:05 08/05/18 22:05 08/05/18 22:05 - Physical Exam Comments: 08/05/18 22:52 GENERAL: Well developed, well nourished. Awake and alert. No acute distress. HEENT: Normocephalic, atraumatic. PERRLA, EOMI. No conjunctival pallor. Sclera are non-icteric. Moist mucous membranes. Oropharynx is clear. NECK: Supple. Full ROM. CARDIOVASCULAR: Regular rate and rhythm. No murmurs, rubs, or gallops. Distal pulses are 2+ and symmetric. PULMONARY: No evidence of respiratory distress. Lungs clear to auscultation bilaterally. No wheezing, rales or rhonchi. ABDOMINAL: Soft. Non-tender. Non-distended. No rebound or guarding. No organomegaly. Normoactive bowel sounds. MUSCULOSKELETAL Normal range of motion at all joints. SKIN: Warm and dry. Normal capillary refill. No rashes. No cyanosis NEUROLOGICAL: Alert, awake, appropriate. Gait is normal without ataxia. PSYCHIATRIC: Cooperative. Good eye contact. Appropriate mood General Appearance: Yes: Nourished, Appropriately Dressed. No: Apparent Distress Moderate Sedation - Procedure Monitoring Vital Signs: Procedure Monitoring Vital Signs Temperature 97.9 F 08/05/18 22:05 Pulse Rate 74 08/05/18 22:05 Respiratory Rate 20 08/05/18 22:05 Blood Pressure 135/72 08/05/18 22:05 O2 Sat by Pulse Oximetry (%) 99 08/05/18 22:05 Medical Decision Making - Medical Decision Making 08/05/18 22:52 Patient with no significant past medical history present with complaint of 4 day history of sore throat, nasal congestion and painful to swallow. Exam significant for mild pharyngeal erythema with nasal congestion otherwise normal exam. Rapid strep negative. Patient is stable for outpatient management for pharyngitis and sinusitis with PCP follow-up. *DC/Admit/Observation/Transfer Diagnosis at time of Disposition: Sinusitis Qualifiers: Sinusitis location: unspecified location Chronicity: acute Recurrence: non- recurrent Qualified Code(s): J01.90 - Acute sinusitis, unspecified Pharyngitis Qualifiers: Pharyngitis/tonsillitis etiology: unspecified etiology Qualified Code(s): J02.9 - Acute pharyngitis, unspecified - Discharge Dispostion Disposition: HOME Condition at time of disposition: Stable Decision to Admit order: No - Prescriptions Prescriptions: Amox-Tr/K Cl [Augmentin - 875Mg Tablet] 1 tab PO BID #14 tablet Fluconazole [Diflucan] 150 mg PO ONCE #1 tablet Ipratropium Sharon 2 spray NS BID PRN #1 spray PRN Reason: nasal congestion - Referrals - Patient Instructions Printed Discharge Instructions: DI for Pharyngitis/Tonsillopharyngitis -- Adult Additional Instructions: Medications as prescribed. Increase fluid intake. Follow-up with primary care as needed. - Post Discharge Activity
[2018-08-05] MEDS ORDERED: AMOX TR/POT CLAV 875MG/125MG TABLETS (FP) PO ONE (22:54)
[2018-08-05] MEDS ORDERED: AMOX TR/POT CLAV 875MG/125MG TABLETS (FP) ONE (22:56)
== END 2018-08-06 02:51 | disposition home or self-care (01) ==
LOC: JERFT 22:03
DX: J01.90 Acute sinusitis, unspecified (principal); J06.9 Acute upper respiratory infection, unspecified
CPT/HCPCS: 87070; 87880; 99282-25

== ENCOUNTER 2018-11-01 16:25 | Emergency (ER) | payer SELFPAY | END 2018-11-01 18:38 | disposition home or self-care (01) | LOC: JERFT 16:25 ==

== ENCOUNTER 2020-11-18 17:38 | Emergency (ER) | payer OTHER ==
[2020-11-18 17:56] VITALS: BP 124/74; PULSE 66; TEMP 98.3; BMI 31.4
== END 2020-11-18 18:41 | disposition home or self-care (01) ==
LOC: JERFT 17:38
DX: K64.4 Residual hemorrhoidal skin tags (principal)
CPT/HCPCS: 99281-25

== ENCOUNTER 2022-09-14 22:14 | Emergency (ER) | payer OTHER ==
[2022-09-14 22:26] VITALS: BP 133/76; PULSE 73; RESP 18; TEMP 99.5; BMI 31.1
[2022-09-14 22:47] LABS: EPI CELLS 25 /uL (0-25.1); HYALINE CASTS 1 /uL (0-3.1); PH,URINE 5.5 (5.0-8.0); URINE APPEARANCE CLOUDY; URINE BACTERIA >9,000 /uL (0-1359); URINE BILIRUBIN NEGATIVE (NEGATIVE); URINE COLOR YELLOW; URINE GLUCOSE (UA) NEGATIVE (NEGATIVE); URINE KETONE NEGATIVE (NEGATIVE); URINE LEUK ESTERASE 3+ (NEGATIVE); URINE NITRITE POSITIVE (NEGATIVE); URINE PROTEIN 1+ (NEGATIVE); URINE RBC 112 /uL (0-23.9); URINE UROBILINOGEN 0.2 mg/dL (0.2-1.0); URINE WBC 2901 /uL (0-25.8)
[2022-09-14] MEDS ORDERED: IBUPROFEN 600 MG TABLET (FP) PO ONE ×2 (23:17→23:20)
[2022-09-14] MEDS ORDERED: SULFAMETHOXAZOLE/TRIMETHOPRIM 800MG/160MG D.S. TABLET PO ONE (23:17)
[2022-09-14] MEDS ORDERED: SULFAMETHOXAZOLE/TRIMETHOPRIM 800MG/160MG D.S. TABLET ONE (23:20)
== END 2022-09-14 23:23 | disposition home or self-care (01) ==
LOC: JER 22:14 → JERFT 22:14 → JER 23:14
DX: N39.0 Urinary tract infection, site not specified (principal)
CPT/HCPCS: 81003; 87086; 87186; 99283-25

== ENCOUNTER 2022-10-04 11:31 | Emergency (ER) | payer OTHER ==
[2022-10-04 11:43] VITALS: BP 120/82; PULSE 70; RESP 16; TEMP 98.9; BMI 30.2
== END 2022-10-04 12:40 | disposition home or self-care (01) ==
LOC: FER 11:31
DX: M79.645 Pain in left finger(s) (principal)
CPT/HCPCS: 73130-TC-LT-FY; 99283-25

== ENCOUNTER 2022-11-16 11:12 | Emergency (ER) | payer SELFPAY ==
[2022-11-16 11:21] VITALS: BP 117/62; PULSE 66; RESP 18; TEMP 99.5; BMI 30.9
== END 2022-11-16 12:31 | disposition home or self-care (01) ==
LOC: JERFT 11:12
DX: R05.9 Cough, unspecified (principal); R09.81 Nasal congestion; J01.90 Acute sinusitis, unspecified; B99.9 Unspecified infectious disease; R49.0 Dysphonia; R09.82 Postnasal drip; Z20.822 Contact with and (suspected) exposure to COVID-19
CPT/HCPCS: 0241U-QW; 99283-25

== ENCOUNTER 2023-01-24 00:34 | Emergency (ER) | payer SELFPAY ==
[2023-01-24 00:45] VITALS: BP 130/84; PULSE 67; RESP 18; TEMP 97.9; BMI 322.6
[2023-01-24] MEDS ORDERED: ACETAMINOPHEN 500 MG TABLET (FP) PO ONE (01:45)
[2023-01-24] MEDS ORDERED: ACETAMINOPHEN 325 MG TABLET (FP) ONE (01:49)
== END 2023-01-24 02:47 | disposition left against medical advice (07) ==
LOC: JER 00:34
DX: R68.83 Chills (without fever) (principal); M79.10 Myalgia, unspecified site; Z20.822 Contact with and (suspected) exposure to COVID-19
CPT/HCPCS: 0241U-QW; 99283-25

== ENCOUNTER 2023-05-17 12:35 | Emergency (ER) | payer SELFPAY ==
[2023-05-17 16:08] VITALS: BP 132/69; PULSE 73; RESP 18; TEMP 98.7
== END 2023-05-17 14:52 | disposition home or self-care (01) ==
LOC: JERFT 12:35
DX: R05.9 Cough, unspecified (principal); M54.6 Pain in thoracic spine; Z20.822 Contact with and (suspected) exposure to COVID-19
CPT/HCPCS: 0241U-QW; 71046-TC-FY; 99284-25

== ENCOUNTER 2023-05-26 10:51 | Emergency (ER) | payer OTHER ==
[2023-05-26 11:00] VITALS: BP 127/63; PULSE 68; RESP 17; TEMP 98.2; BMI 30.7
== END 2023-05-26 12:12 | disposition home or self-care (01) ==
LOC: JERFT 10:51
DX: J98.11 Atelectasis (principal)
CPT/HCPCS: 71046-TC-FY; 99283-25

== ENCOUNTER 2023-07-15 14:26 | Emergency (ER) | payer OTHER ==
[2023-07-15 14:48] VITALS: BP 140/77; PULSE 67; RESP 18; TEMP 98; BMI 30.7
[2023-07-15] MEDS ORDERED: IBUPROFEN 400 MG TABLET (FP) PO ONE (16:16)
[2023-07-15] MEDS: IBUPROFEN 400 MG TABLET (FP) PO ONE (16:21)
== END 2023-07-15 16:33 | disposition home or self-care (01) ==
LOC: JERFT 14:26
DX: K64.9 Unspecified hemorrhoids (principal); M25.50 Pain in unspecified joint
CPT/HCPCS: 99283-25

== ENCOUNTER 2023-09-04 08:38 | Emergency (ER) | payer OTHER ==
[2023-09-04 08:53] VITALS: BP 105/65; PULSE 84; RESP 18; TEMP 98.5; BMI 31.1
[2023-09-04] MEDS ORDERED: PENICILLIN G BENZATHINE 1,200,000 UNIT/2 ML PFS IM ONE (09:30)
[2023-09-04] MEDS: PENICILLIN G BENZATHINE 1,200,000 UNIT/2 ML PFS IM ONE (09:40)
[2023-09-04] MEDS ORDERED: FLUCONAZOLE 150 MG TABLET PO ONE (09:53)
[2023-09-04] MEDS: FLUCONAZOLE 150 MG TABLET PO ONE (09:53)
== END 2023-09-04 09:56 | disposition home or self-care (01) ==
LOC: JERFT 08:38 → JER 08:38 → JERFT 09:56
DX: J02.0 Streptococcal pharyngitis (principal)
CPT/HCPCS: 99284-25

== ENCOUNTER 2023-10-10 19:00 | Emergency (ER) | payer OTHER ==
[2023-10-10 19:18] VITALS: BP 151/64; PULSE 83; RESP 18; TEMP 98.7; BMI 30.7
[2023-10-10] MEDS ORDERED: ALBUTEROL SO4 2.5/IPRATROPIUM 0.5 INH SOL 3 ML VIAL.NEB. NEB ONE (20:40)
[2023-10-10] MEDS: ALBUTEROL SO4 2.5/IPRATROPIUM 0.5 INH SOL 3 ML VIAL.NEB. NEB ONE (20:44)
[2023-10-10] MEDS ORDERED: DEXAMETHASONE 4 MG TABLET (FP) ONE (21:18)
[2023-10-10] MEDS: DEXAMETHASONE SOD PHOSPHATE 10 MG/1 ML VIAL PO ONE (21:25)
== END 2023-10-10 21:27 | disposition home or self-care (01) ==
LOC: JER 19:00
PROC: 3E0F7GC Introduction of Other Therapeutic Substance into Respiratory Tract, Via Natural or Artificial Opening (ICD-10-PCS; principal; 2023-10-10)
DX: R05.9 Cough, unspecified (principal); R32 Unspecified urinary incontinence; H92.01 Otalgia, right ear; J40 Bronchitis, not specified as acute or chronic; Z20.822 Contact with and (suspected) exposure to COVID-19
CPT/HCPCS: 0241U-QW; 71046-TC-FY; 99284-25; J1100

== ENCOUNTER 2024-07-08 16:40 | Emergency (ER) | payer OTHER ==
[2024-07-08 16:58] VITALS: BP 125/74; PULSE 66; RESP 18; TEMP 98.2; BMI 31.9
[2024-07-08] MEDS ORDERED: KETOROLAC TROMETHAMINE 30 MG/1 ML VIAL IM ONE (17:57)
[2024-07-08] MEDS ORDERED: ACETAMINOPHEN 500 MG TABLET (FP) PO ONE (17:57)
[2024-07-08] MEDS ORDERED: KETOROLAC TROMETHAMINE 30 MG/1 ML VIAL ONE (18:16)
[2024-07-08] MEDS ORDERED: ACETAMINOPHEN 500 MG TABLET (FP) ONE (18:16)
== END 2024-07-08 18:30 | disposition home or self-care (01) ==
LOC: JERFT 16:40
DX: M25.561 Pain in right knee (principal)
CPT/HCPCS: 99283-25